=== PATIENT | male | born 1930 | race Caucasian/White ===

== ENCOUNTER 2016-09-16 11:19 | Emergency (ER) | payer OTHER, MEDICARE ==
[~2016-09-16] VITALS: Ht 185.4 cm; Wt 110.0 kg
[~2016-09-16 11:19] MED LIST: B COMPLEX1200 MCG/1; CALTRATE 600600 MG PO; COUMADIN3 MG; DITROPAN XL10 MG; ENALAPRIL MALEAT5 MG PO; METOPROLOL SUC200 MG PO; MIRALAX17 GM
[2016-09-16] MEDS ORDERED: FLEXERIL10 MG PO (17:21)
[2016-09-16] MEDS ORDERED: UNABLE TO OBTAIN (17:48)
[2016-09-16 17:50] VITALS: BP 117/73
== END 2016-09-16 17:52 | disposition home or self-care (01) ==
LOC: EME 11:19
DX: S16.1XXA Strain of muscle, fascia and tendon at neck level, initial encounter (principal); X50.9XXA Other and unspecified overexertion or strenuous movements or postures, initial encounter; G47.30 Sleep apnea, unspecified; Z99.81 Dependence on supplemental oxygen; Z85.46 Personal history of malignant neoplasm of prostate
CPT/HCPCS: 72125; 99281; 99284